=== PATIENT | female | born 1970 | race African-American/Black ===

== ENCOUNTER 2020-01-22 18:03 | Emergency (ER) | payer OTHER, MEDICAID ==
--- NOTE | 2020-01-22 18:22 | NUR ---
Patient to ER bed 03 to gown for evaluation. Side rails up.
--- NOTE | 2020-01-22 18:24 | NUR ---
Pt brought by caregiver, A&Ox4, pt presents to ER with low blood sugar, current BS 44, skin pink and warm, cap refill <3, VSS, respirations even and unlabored, will cont to monitor.
--- NOTE | 2020-01-22 18:26 | NUR ---
Dr Will examining patient at bedside
--- NOTE | 2020-01-22 18:28 | NUR ---
PT GIVEN 8 OZ APPLE JUICE AND ATE SLICED PEARS.
[2020-01-22] MEDS ORDERED: SITA100T11 PO (18:45)
[2020-01-22] MEDS ORDERED: LIP20 PO (18:45)
[2020-01-22] MEDS ORDERED: GLIM2TAB2 PO (18:45)
[2020-01-22] MEDS ORDERED: GLU850 PO (18:45)
[2020-01-22] MEDS ORDERED: LISI1TAB29 PO (18:45)
[2020-01-22 18:55] LABS: BASOPHILS % (AUTO) 0.5 % (0.0-2.0); EOSINOPHILS % (AUTO) 0.4 % (0.0-4.0); HEMATOCRIT 37.7 % (36-48); HEMOGLOBIN 12.2 g/dL (12.0-16.0); LYMPHOCYTES # (AUTO) 0.9 K/uL (1.0-5.5); LYMPHOCYTES % (AUTO) 24.8 % (20.5-51.5); MEAN CORPUSCULAR HEMOGLOBIN 27 pg (27-31); MEAN CORPUSCULAR HGB CONC 32 % (32-36); MEAN CORPUSCULAR VOLUME 85 fL (79.0-98.0); MONOCYTES # (AUTO) 0.5 K/uL (0.0-1.0); MONOCYTES % (AUTO) 11.8 % (1.7-9.3); NEUTROPHILS # (AUTO) 2.4 K/uL (1.8-7.7); NEUTROPHILS % (AUTO) 62.5 % (40.0-70.0); PLATELET COUNT (AUTO) 258 K/uL (130-430); RED BLOOD CELL COUNT(AUTO) 4.46 MIL/uL (4.2-6.2); WHITE BLOOD COUNT (AUTO) 3.8 K/uL (4.8-10.8)
[2020-01-22 19:08] LABS: CALCIUM 9.4 mg/dL (8.4-11.0); CREATININE 1.41 mg/dL (0.55-1.30)
[2020-01-22 19:13] LABS: ALBUMIN 3.8 g/dL (3.4-4.8); TOTAL BILIRUBIN 0.3 mg/dL (0.0-1.0)
--- NOTE | 2020-01-22 19:15 | NUR ---
Urine collected and sent to the lab
--- NOTE | 2020-01-22 19:18 | NUR ---
Current accu check is 79.
--- NOTE | 2020-01-22 19:20 | NUR ---
Care endorsed to Anisa RAZA. Pt is in stable condition
--- NOTE | 2020-01-22 19:22 | NUR ---
received report from RY Anguiano for continuation of care.
--- NOTE | 2020-01-22 19:28 | NUR ---
# 20 gauge angiocath placed to RAC. Use of asceptic technique. Opsite placed over site. Blood return noted. Flushed with 10 cc of normal saline. No evidence of infiltration noted. Patient tolerated well.
--- NOTE | 2020-01-22 19:35 | NUR ---
pt drinking second apple juice. tolerating well.
[2020-01-22 19:41] LABS: BILIRUBIN,URINE NEGATIVE (NEGATIVE); BLOOD, URINE NEGATIVE (NEGATIVE); COLOR,URINE YELLOW (YELLOW); GLUCOSE,URINE NEGATIVE (NEGATIVE); KETONES,URINE NEGATIVE (NEGATIVE); LEUKOCYTE ESTERASE ,URINE 1+ (NEGATIVE); NITRITE, URINE POSITIVE (NEGATIVE); PH,URINE 5.5 (5.0-8.0); PROTEIN URINE NEGATIVE (NEGATIVE); UROBILINOGEN,URINE 0.2 (0.2-1.0)
[2020-01-22 19:43] LABS: CLARITY/URINE SLIGHTLY HAZY (CLEAR)
[2020-01-22 19:53] LABS: RBC,URINE 0-3 /HPF (0-3)
[2020-01-22 19:54] LABS: BACTERIA,URINE MANY /HPF (None Seen); MUCUS,URINE 1+ /LPF (None Seen)
[2020-01-22 20:25] VITALS: BP_SYST 138
--- NOTE | 2020-01-22 20:25 | NUR ---
Patient given written and verbal discharge instructions and verbalizes understanding. ER MD discussed with patient the results and treatment provided. Patient in stable condition. ID arm band removed. IV catheter removed intact and dressing applied, no active bleeding. Rx of macrobid given. Patient educated on pain management and to follow up with PMD. Pain Scale 0/10. Opportunity for questions provided and answered. Medication side effect fact sheet provided.
== END 2020-01-22 20:25 | disposition home or self-care (01) ==
LOC: SED 18:03
DX: E11.649 Type 2 diabetes mellitus with hypoglycemia without coma (principal); N39.0 Urinary tract infection, site not specified; E11.29 Type 2 diabetes mellitus with other diabetic kidney complication; N28.9 Disorder of kidney and ureter, unspecified; I10 Essential (primary) hypertension; Z79.899 Other long term (current) drug therapy
CPT/HCPCS: 36415; 80053; 81000-TC; 85025; 87086; 87186-TC; 99283